=== PATIENT | male | born 1995 | race African-American/Black ===

== ENCOUNTER 2021-07-12 08:50 | Emergency (ER) | payer SELFPAY ==
[2021-07-12] MEDS ORDERED: Doxycycline 100 MG Cap PO ONE (09:15)
[2021-07-12] MEDS ORDERED: cefTRIAXone 500 MG in Lidocaine 1% 1 ML IM ONE (09:15)
--- NOTE | 2021-07-12 09:21 | EDM.PDOC ---
ED HPI GENERAL MEDICAL PROBLEM - General Chief Complaint: Lower Extremity Injury/Pain Stated Complaint: INFLAMATION,PAIN IN FOOT Time Seen by Provider: 07/12/21 08:55 Source of Information: Reports: Patient History Limitations: Reports: No Limitations - History of Present Illness INITIAL COMMENTS - FREE TEXT/NARRATIVE: Patient is a 25-year-old male who presents today for burning with urination. Patient is having unprotected sex and had a history of STDs and states this feels like the similar time in the past. Patient denies any penile discharge. Denies any nausea or vomiting. Patient mention to the nurse that he has some foot pain but when talking to the patient patient has had no trauma or injury to the foot. He occasionally wears you work boots that has a high arch to cause him some pain. Patient currently has no foot pain. R foot Pain Score (Numeric/FACES): 5 - Related Data Allergies Allergy/AdvReac Type Severity Reaction Status Date / Time No Known Allergies Allergy Verified 07/12/21 09:00 Home Meds: Home Meds . [No Known Home Meds] 07/12/21 [History] Past Medical History HEENT History: Reports: None Cardiovascular History: Reports: None Respiratory History: Reports: None Gastrointestinal History: Reports: None Genitourinary History: Reports: None Musculoskeletal History: Reports: None Neurological History: Reports: None Psychiatric History: Reports: None Endocrine/Metabolic History: Reports: None Hematologic History: Reports: None Immunologic History: Reports: None Oncologic (Cancer) History: Reports: None Dermatologic History: Reports: None - Infectious Disease History Infectious Disease History: Reports: None - Past Surgical History Head Surgeries/Procedures: Reports: None Male Surgical History: Reports: Other (See Below) Social & Family History - Tobacco Use Tobacco Use Status *Q: Never Tobacco User - Caffeine Use Caffeine Use: Reports: Tea - Recreational Drug Use Recreational Drug Use: No Review of Systems - Review of Systems Review Of Systems: See Below Constitutional: Reports: No Symptoms Eyes: Reports: No Symptoms Ears: Reports: No Symptoms Nose: Reports: No Symptoms Mouth/Throat: Reports: No Symptoms Respiratory: Reports: No Symptoms Cardiovascular: Reports: No Symptoms GI/Abdominal: Reports: No Symptoms Genitourinary: Reports: Dysuria Musculoskeletal: Reports: No Symptoms Skin: Reports: No Symptoms Neurological: Reports: No Symptoms Psychiatric: Reports: No Symptoms ED EXAM, GENERAL - Physical Exam Exam: See Below Exam Limited By: No Limitations General Appearance: Alert, WD/WN, No Apparent Distress Head: Atraumatic Respiratory/Chest: No Respiratory Distress Cardiovascular: Normal Peripheral Pulses, Regular Rate, Rhythm GI/Abdominal: Normal Bowel Sounds, Soft, Non-Tender (Male) Exam: Normal Inspection Back Exam: Normal Inspection, Full Range of Motion Extremities: Normal Inspection, Normal Range of Motion, Non-Tender Neurological: Alert, Oriented, CN II-XII Intact, Normal Gait Psychiatric: Normal Affect, Normal Mood Course - Vital Signs Last Recorded V/S: Last Vital Signs Temp 97 F 07/12/21 09:00 Pulse 87 07/12/21 09:00 Resp 16 07/12/21 09:00 BP 132/75 07/12/21 09:00 Pulse Ox 96 07/12/21 09:00 - Orders/Labs/Meds Orders: Active Orders 24 hr Category Date Time Status CHLAMYDIA AND GONORRHEA BY [facility] Stat Lab 07/12/21 09:14 Ordered Doxycycline [Vibramycin] Med 07/12/21 09:15 Once 100 mg PO ONETIME ONE cefTRIAXone [Rocephin] 500 mg Med 07/12/21 09:15 Ordered Lidocaine 1% [Xylocaine-MPF 1%] 1 ml IM ONETIME Departure - Departure Time of Disposition: : Disposition: Home, Self-Care 01 Condition: Good Clinical Impression: Concern about STD in male without diagnosis - Discharge Information *PRESCRIPTION DRUG MONITORING PROGRAM REVIEWED*: Not Applicable *COPY OF PRESCRIPTION DRUG MONITORING REPORT IN PATIENT PER: Not Applicable Instructions: Preventing Sexually Transmitted Infections, Adult Referrals: PCP,None [Primary Care Provider] - Additional Instructions: The following information is given to patients seen in the emergency department who are being discharged to home. This information is to outline your options for follow-up care. We provide all patients seen in our emergency department with a follow-up referral. The need for follow-up, as well as the timing and circumstances, are variable depending upon the specifics of your emergency department visit. If you don't have a primary care physician on staff, we will provide you with a referral. We always advise you to contact your personal physician following an emergency department visit to inform them of the circumstance of the visit and for follow-up with them and/or the need for any referrals to a consulting specialist. The emergency department will also refer you to a specialist when appropriate. This referral assures that you have the opportunity for follow-up care with a specialist. All of these measure are taken in an effort to provide you with optimal care, which includes your follow-up. Under all circumstances we always encourage you to contact your private physician who remains a resource for coordinating your care. When calling for follow-up care, please make the office aware that this follow-up is from your recent emergency room visit. If for any reason you are refused follow-up, please contact the [facility] Emergency Department at and asked to speak to the emergency department charge nurse. Please follow up with your primary care physician. If you do not have a primary care physician, see below: [facility] [address] [place] [phone] [address] [facility] [address] [place] [address] Seen today for concerns of possible STD. We sent the test off and he will return the next 2 to 3 days. If the test is positive you'll receive a call from us. We also started you on antibiotics just in case the test is positive. Recommend continue taking his antibiotics. If you do not receive a call next 2 to 3 days likely make sure that is negative but if you would like to confirm you can call in for results as well. Sepsis Event Note (ED) - Evaluation Sepsis Screening Result: No Definite Risk - Focused Exam Vital Signs: Vital Signs Temp Pulse Resp BP Pulse Ox 07/12/21 09:00 97 F 87 16 132/75 96 - My Orders Last 24 Hours: My Active Orders 07/12/21 09:14 CHLAMYDIA AND GONORRHEA BY TMA Stat 07/12/21 09:15 Doxycycline [Vibramycin] 100 mg PO ONETIME ONE cefTRIAXone [Rocephin] 500 mg Lidocaine 1% [Xylocaine-MPF 1%] 1 ml IM ONETIME - Assessment/Plan Last 24 Hours: My Active Orders 07/12/21 09:14 CHLAMYDIA AND GONORRHEA BY [facility]MA Stat 07/12/21 09:15 Doxycycline [Vibramycin] 100 mg PO ONETIME ONE cefTRIAXone [Rocephin] 500 mg Lidocaine 1% [Xylocaine-MPF 1%] 1 ml IM ONETIME Plan: Patient is a 25-year-old male who presents today for STD check. Patient has some burning with urination and has had unprotected sex. Will test for gonorrhea chlamydia and empirically treat. Patient will be discharged home with prescription of antibiotics.
[2021-07-13 14:07] LABS: C.TRACHOMATIS BY TMA Negative (Negative); N.GONORRHOEAE BY TMA Negative (Negative)
== END 2021-07-12 09:40 | disposition home or self-care (01) ==
LOC: MW.ED 08:50
DX: Z20.2 Contact with and (suspected) exposure to infections with a predominantly sexual mode of transmission (principal); M79.671 Pain in right foot
CPT/HCPCS: 87491; 87591; 96372; 99283; A9270; J0696

== ENCOUNTER 2022-04-09 09:22 | Emergency (ER) | payer OTHER ==
[2022-04-09 10:44] LABS: BLOOD UREA NITROGEN,BUN 16 mg/dL (7.0-18.0); CARBON DIOXIDE,CO2 28.2 mmol/L (21.0-32.0); CHLORIDE,CL 101 mmol/L (98-107); GLUCOSE RANDOM 94 mg/dL (74-106); POTASSIUM,K 4.6 mmol/L (3.5-5.1); SODIUM,NA 138 mmol/L (136-148)
[2022-04-09 11:47] LABS: C. TRACHOMATIS BY PCR NOT DETECTED; N. GONORRHOEAE BY PCR NOT DETECTED
== END 2022-04-09 12:01 | disposition home or self-care (01) ==
LOC: MW.ED 09:22
DX: K21.9 Gastro-esophageal reflux disease without esophagitis (principal); Z79.899 Other long term (current) drug therapy; Z86.16 Personal history of COVID-19
CPT/HCPCS: 80053; 81001; 85025; 86592; 87491; 87591; 99284

== ENCOUNTER 2022-05-14 21:25 | Emergency (ER) | payer OTHER ==
[2022-05-14] MEDS ORDERED: Ketorolac 30 MG/ML SDV IM ONE (22:10)
== END 2022-05-15 00:03 | disposition home or self-care (01) ==
LOC: MW.ED 21:25
DX: U07.1 COVID-19 (principal); Z86.16 Personal history of COVID-19; Z79.899 Other long term (current) drug therapy
CPT/HCPCS: 36415; 71045; 84484; 87635; 87651; 93005; 96372; 99283; J1885; 93010; U0002

== ENCOUNTER 2022-08-23 14:45 | Emergency (ER) | payer OTHER ==
[~2022-08-23 14:45] MED LIST: Lidocaine 2% Viscous Solution 15 ML UD PO ONE; Metoclopramide Oral Soln 10 MG/10 ML UD Cup PO ONE
== END 2022-08-23 15:42 | disposition home or self-care (01) ==
LOC: MW.ED 14:45
DX: R10.13 Epigastric pain (principal)
CPT/HCPCS: 71045; 99285; A9270

== ENCOUNTER 2022-09-20 19:47 | Emergency (ER) | payer OTHER ==
[2022-09-21 00:54] LABS: C. TRACHOMATIS BY PCR NOT DETECTED; N. GONORRHOEAE BY PCR NOT DETECTED
[2022-09-21] MEDS ORDERED: cefTRIAXone 500 MG in Lidocaine 1% 1 ML IM ONE (01:05)
[2022-09-21] MEDS ORDERED: Azithromycin 250 MG Tab PO ONE (01:06)
[2022-09-21] MEDS ORDERED: Azithromycin 250 MG Tab PO STA ×2 (01:26→01:28)
== END 2022-09-21 01:39 | disposition home or self-care (01) ==
LOC: MW.ED 19:47
DX: R30.0 Dysuria (principal)
CPT/HCPCS: 87491; 87591; 96372; 99283; A9270; J0696